=== PATIENT | female | born 1990 | race Caucasian/White ===

== ENCOUNTER 2018-01-27 09:53 | Outpatient (CLI) | payer OTHER ==
[~2018-01-27 09:53] MED LIST: ZYRTEC10 MG PO
== END 2018-01-27 10:01 | disposition home or self-care (01) ==
LOC: LAB 09:53
DX: D50.8 Other iron deficiency anemias (principal); R30.0 Dysuria; E55.9 Vitamin D deficiency, unspecified; E11.9 Type 2 diabetes mellitus without complications; E03.0 Congenital hypothyroidism with diffuse goiter; E78.2 Mixed hyperlipidemia

== ENCOUNTER 2018-12-06 12:40 | Outpatient (CLI) | payer OTHER | END 2018-12-06 12:52 | disposition home or self-care (01) | LOC: LAB 12:40 | DX: J11.1 Influenza due to unidentified influenza virus with other respiratory manifestations (principal); J06.9 Acute upper respiratory infection, unspecified ==

== ENCOUNTER 2022-12-18 21:31 | Emergency (ER) | payer OTHER ==
[~2022-12-18] VITALS: Ht 162.6 cm; Wt 90.7 kg
== END 2022-12-18 23:48 | disposition home or self-care (01) ==
LOC: ER 21:31
DX: L05.01 Pilonidal cyst with abscess (principal)